=== PATIENT | male | born 1960 | race Caucasian/White ===

== ENCOUNTER → 2017-10-18 16:07 | Outpatient (CLI) | payer MEDICARE | END | disposition home or self-care (01) | LOC: D.MAMMO 13:00 | DX: N64.89 Other specified disorders of breast (principal) ==

== ENCOUNTER → 2021-02-17 13:33 | Outpatient (CLI) | payer OTHER ==
--- NOTE | ~2021-02-17 | EC ---
PATIENT:ANA MARIA MEADOWS DATE OF SERVICE: 02/17/21 SEX: M MEDICAL RECORD: [id number] DATE OF : 60 LOCATION:D.FORMERLY [facility] AGE OF PATIENT: 60 ADMISSION DATE: 02/17/21 REFERRING PHYSICIAN: INTERPRETING PHYSICIAN: DORIE AYALA MD ECHOCARDIOGRAM REPORT ECHO CHARGES 4 ECHO COMPLETE Date: 02/17/21 CLINICAL DIAGNOSIS: ANGINA/HEART MURMUR ECHOCARDIOGRAPHIC MEASUREMENTS (adult normal given) AC root (d.<3.7cm) 3.4 cm LV Septum d (<1.2 cm> 1.3 cm Valve Excursion 1.3 cm LV Septum (systole) 1.4 cm Left Atria (s.<4.0cm> 3.0 cm LVPW d(<1.2cm) 1.2 cm RV (d.<2.3cm) 3.0 cm LVPW (sytole) 1.4 cm LV diastole(<5.6CM) 3.8 cm MV E-F(>70mm/sec) cm LV systole 2.8 cm LVOT Diameter 1.7 cm MV exc.(>10mm) 1.6 cm Est.ejection fraction (50-75%) % DOPPLER: LVIT cm/sec A 78.0 cm/sec E 65.0 cm/sec LA cm/sec RVSP 19 mmHg LVOT 74 cm/sec AOP1/2T m/s Asc. Ao 178 cm/sec RVOT 75 cm/sec RA cm/sec PA 137 cm/sec AV Gradient Peak 12.68mmHg AV Mean 7.45 mmHg AV Area 1.5 cm MV Gradient Peak 3.15 mmHg MV Mean 1.26 mmHg MV Area cm COMMENTS: Brass Reclaimer: 2 GRANT LARRY Registered Health Nurse: 3 Dr. Motta TAPE# PACS Pericardial Effusion N DATE OF SERVICE: Adequate 2D, color-flow imaging, spectral Doppler, and M-Mode Borderline LVH. LV internal dimensions are normal. Wall motion is normal. EF is greater than or equal to 55%. Aortic valve is tricuspid. No evidence of stenosis by Doppler interrogation. Left atrium is normal at 3 cm. Mitral valve shows no prolapse. Trace MR. Right-sided chambers are grossly normal. Trace TR. ECHOCARDIOGRAM REPORT [id number] ANA MARIA MEADOWS TRANSINT:[id number] Voice Confirmation ID: [id number] DOCUMENT ID: [id number] DORIE AYALA MD CC: [id number] DICTATION DATE: 02/17/21 1510 FASHION MODEL: 02/17/21 1547 REG [facility] [address] [id number]
== END | disposition home or self-care (01) ==
LOC: D.ECHO 09:35
PROVIDERS: ATTEND Internal Medicine Interventional Cardiology
DX: I20.9 Angina pectoris, unspecified (principal)

== ENCOUNTER 2021-02-25 10:45 | Emergency (ER) | payer OTHER ==
[~2021-02-25] VITALS: Ht 170.2 cm; Wt 80.9 kg
[2021-02-25 11:10] VITALS: BP 153/99; Ht 170.2 cm; Wt 80.9 kg
[2021-02-25] MEDS ORDERED: TORADOL10 MG PO (12:50)
== END 2021-02-25 13:27 | disposition home or self-care (01) ==
LOC: D.ER 10:45
DX: M25.562 Pain in left knee (principal); S83.92XA Sprain of unspecified site of left knee, initial encounter; W19.XXXA Unspecified fall, initial encounter; I10 Essential (primary) hypertension

== ENCOUNTER → 2021-03-02 13:52 | Outpatient (CLI) | payer MEDICARE ==
[2021-02-25 11:10] VITALS: BMI 27.9
[~2021-03-02 13:52] MED LIST: TORADOL10 MG PO
== END | disposition home or self-care (01) ==
LOC: D.MRI 13:52
PROVIDERS: ATTEND Nurse Practitioner Family
DX: S82.102A Unspecified fracture of upper end of left tibia, initial encounter for closed fracture (principal)